=== PATIENT | male | born 1955 | race Caucasian/White ===

== ENCOUNTER 2019-08-12 10:41 | Outpatient (CLI) | payer OTHER, SELFPAY ==
--- NOTE | ~2019-08-12 | CT_ITS ---
EXAMINATION: CT chest abdomen pelvis wo con EXAM DATE: 08/12/2019 11:18 INDICATION: Lymphoproliferative disorder. Low-grade B cell lymphoma. TECHNIQUE: Spiral CT of the chest, abdomen and pelvis was performed without contrast. Axial, argueta l and sagittal images were reviewed. Coronal maximum intensity pixel images of chest reviewed. The dose-length product (DLP) for this examination was 1189.96 mGy-cm. The exposure was tailored accordi ng to patient size (auto mA exposure control), and iterative reconstruction (ASIR) was used as additi onal dose reduction technique. There is no prior study for comparison. FINDINGS: CHEST: Several calcified granulomas within each lung. There is a left subclavian arterial origin ancelmo nt. There is trace pericardial effusion. No pleural effusions. Tracheobronchial tree is patent. T here is no mediastinal, hilar or axillary lymphadenopathy. There is no pneumothorax. Heart normal in size. There are likely right coronary arterial stent or stents. Correlate with prior cardiac hi story. ABDOMEN PELVIS: The liver, spleen, adrenal glands and pancreas are unremarkable. Gallbladder is unre markable. No biliary obstruction. Several renal hilar calcifications bilaterally probably vascular but small right nephrolithiasis not excludable. The prostate is unremarkable. The bladder is unrema rkable. There is no retroperitoneal or pelvic lymphadenopathy. Moderate right, small left inguinal fat-containing hernias. The appendix is normal. The stomach and small bowel are unremarkable. There is expected amount of c olonic stool. No free intraperitoneal gas. There are no osteoblastic or osteolytic lesions identi fied. IMPRESSION: 1. No thoracic, abdomen or pelvis lymphadenopathy suspected. Normal spleen size. 2. Moderate right, small left fat-containing inguinal hernias. Reviewed, dictated and finalized at location A. [employer] CLERK IMPRESSION: 1. No thoracic, abdomen or pelvis lymphadenopathy suspected. Normal spleen siz e. 2. Moderate right, small left fat-containing inguinal hernias.
== END 2019-08-12 10:42 | disposition home or self-care (01) ==
LOC: ANHIMG 10:51
PROVIDERS: Visit Provider Internal Medicine Hematology & Oncology
DX: D47.Z9 Other specified neoplasms of uncertain behavior of lymphoid, hematopoietic and related tissue (principal); M31.4 Aortic arch syndrome [Takayasu]; K40.20 Bilateral inguinal hernia, without obstruction or gangrene, not specified as recurrent
CPT/HCPCS: 71250; 74176

== ENCOUNTER 2019-09-18 10:27 | Outpatient (CLI) | payer OTHER, SELFPAY | END 2019-09-18 10:28 | disposition home or self-care (01) | LOC: ANHAUDIO 10:28 | DX: H93.13 Tinnitus, bilateral (principal); H90.3 Sensorineural hearing loss, bilateral | CPT/HCPCS: 92557; 92567 ==